=== PATIENT | male | born 1995 | race Two or more races ===

== ENCOUNTER 2023-06-15 19:48 | Emergency (ER) | payer SELFPAY ==
[~2023-06-15] VITALS: Ht 162.6 cm; Wt 74.5 kg
[2023-06-15] MEDS ORDERED: HYDROcodone-ACET 5/325MG TAB PO ONE (21:45)
[2023-06-15] MEDS ORDERED: CEPH500C PO (22:21)
[2023-06-15] MEDS ORDERED: IBUP-1454 PO (22:21)
[2023-06-15] MEDS ORDERED: MUPI2OIN2 EX (22:21)
[2023-06-15 22:33] VITALS: BP 139/90; PULSE 84; RESP 16; TEMP 98.4
[2023-06-15 22:34] VITALS: O2SAT 97
== END 2023-06-15 22:50 | disposition home or self-care (01) ==
LOC: ER 19:48
DX: S83.8X1A Sprain of other specified parts of right knee, initial encounter (principal); W22.8XXA Striking against or struck by other objects, initial encounter; Y93.66 Activity, soccer; Y92.89 Other specified places as the place of occurrence of the external cause; Y99.8 Other external cause status
CPT/HCPCS: 29505; 73562